=== PATIENT | female | born 1990 | race American Indian/Alaskan Native ===

== ENCOUNTER 2021-11-18 08:41 | Emergency (ER) | payer MEDICAID ==
[2021-11-18] MEDS ORDERED: IBUPROFEN 800 MG TAB PO ONE (09:40)
[2021-11-18 10:12] LABS: Bilirubin,Urine NEG (Negative); Blood,Urine LG (Negative); Color,Urine Colorless (Yellow); Mucus,Urine FEW /HPF; Protein,Urine <15 mg/dL mg/dL (Negative); Urobilinogen,Urine < 2.0 mg/dL (<2.0); WBC,Urine < 1.0 /HPF (0.0-6.0)
[2021-11-18 10:13] LABS: HCG Qualitative,Urine Negative (Negative)
--- NOTE | 2021-11-18 10:54 | Ultrasound Report ---
ULTRASOUND PELVIS INDICATION: Pelvic pain. TECHNIQUE: Transabdominal. Duplex Color Doppler used: Yes. COMPARISON: None available FINDINGS: Uterus: Present. Size: 7.6 x 4.8 x 5.2 cm. Endometrial complex: Normal measuring 1.1 cm. Mass lesions: None. Additional findings: None. Right Ovary: Size: 2.4 x 1.5 x 1.7 cm Blood flow: Normal. Cyst or mass: None. Left Ovary: Size: 2.6 x 1.3 x 1.3 cm Blood flow: Normal. Cyst or mass: None. Urinary Bladder: Normal. Free Fluid: None. Additional Findings: None. IMPRESSION: 1. No acute sonographic abnormality of the pelvis. Signer Name: Jovi Bee MD Signed: 11/18/2021 10:50 AM Workstation Name: [email or web address]
--- NOTE | 2021-11-18 10:56 | Emergency Department Report ---
ED Dysuria HPI - HPI Chief Complaint: Abdominal Pain Stated Complaint: OVARIES PAIN Time Seen by Provider: 11/18/21 09:06 Duration: 5 Days Location of Discomfort: Suprapubic Severity: Mild Symptoms: Dysuria: No, Frequency: No, Suprapubic Pain: Yes, Flank Pain: No, Fever: No, Hematuria: No, Abdominal Pain: No, Previous UTI's: No Other History: Patient is a 31-year-old -[place] female that comes to the emergency room complaining of ovarian pain. She is on her menses. She states that this pain is beyond her normal cramping. She thinks it is her ovarian cyst acting up. She denies dysuria. She denies discharge. She denies concern for STI. ED Review of Systems ROS: Stated complaint: OVARIES PAIN Other details as noted in HPI Comment: All other systems reviewed and negative ED Past Medical Hx - Past Medical History Previous Medical History?: Yes Additional medical history: Ovarian cyst - Surgical History Past Surgical History?: No - Family History Family history: no significant - Social History Smoking Status: Never Smoker Substance Use Type: Alcohol Dysuria Exam - Exam General: Vital signs noted. No distress. Alert and acting appropriately. Exam: Yes Moist Mucous Membranes, No CVA Tenderness, No Abdominal Tenderness, No Rigidity or Guarding Labs: Lab Results 11/18/21 Range/Units 09:10 Urine Color Colorless (Yellow) Urine Turbidity Clear (Clear) Urine pH 6.0 (5.0-7.0) Ur Specific [place] 1.006 (1.003-1.030) Urine Protein <15 mg/dl (Negative) mg/dL Urine Glucose (UA) Neg (Negative) mg/dL Urine Ketones Neg (Negative) mg/dL Urine Blood Lg (Negative) Urine Nitrite Neg (Negative) Urine Bilirubin Neg (Negative) Urine Urobilinogen < 2.0 (<2.0) mg/dL Ur Leukocyte Esterase Neg (Negative) Urine WBC (Auto) < 1.0 (0.0-6.0) /HPF Urine RBC (Auto) 2.0 (0.0-6.0) /HPF U Epithel Cells (Auto) 1.0 (0-13.0) /HPF Urine Mucus Few /HPF Urine HCG, Qual Negative (Negative) ED Course Vital Signs 11/18/21 11/18/21 11/18/21 09:02 09:03 09:07 Temperature 98.3 F Pulse Rate Respiratory 16 Rate Blood Pressure 117/83 O2 Sat by Pulse 100 Oximetry 11/18/21 11/18/21 09:45 09:55 Temperature 97.8 F Pulse Rate 74 Respiratory 16 16 Rate Blood Pressure 131/82 O2 Sat by Pulse 99 Oximetry ED Medical Decision Making - Radiology Data Radiology results: report reviewed, image reviewed See report - Medical Decision Making Lab Results 11/18/21 Range/Units 09:10 Urine Color Colorless (Yellow) Urine Turbidity Clear (Clear) Urine pH 6.0 (5.0-7.0) Ur Specific [place] 1.006 (1.003-1.030) Urine Protein <15 mg/dl (Negative) mg/dL Urine Glucose (UA) Neg (Negative) mg/dL Urine Ketones Neg (Negative) mg/dL Urine Blood Lg (Negative) Urine Nitrite Neg (Negative) Urine Bilirubin Neg (Negative) Urine Urobilinogen < 2.0 (<2.0) mg/dL Ur Leukocyte Esterase Neg (Negative) Urine WBC (Auto) < 1.0 (0.0-6.0) /HPF Urine RBC (Auto) 2.0 (0.0-6.0) /HPF U Epithel Cells (Auto) 1.0 (0-13.0) /HPF Urine Mucus Few /HPF Urine HCG, Qual Negative (Negative) Vital Signs 11/18/21 11/18/21 11/18/21 09:02 09:03 09:07 Temperature 98.3 F Pulse Rate Respiratory 16 Rate Blood Pressure 117/83 Blood Pressure [Right] O2 Sat by Pulse 100 Oximetry 11/18/21 11/18/21 11/18/21 09:45 09:55 11:22 Temperature 97.8 F Pulse Rate 74 78 Respiratory 16 16 16 Rate Blood Pressure 131/82 Blood Pressure 126/80 [Right] O2 Sat by Pulse 99 100 Oximetry UA noted. Preg negative. Ultrasound noted. Patient being discharged home with discharge plan of care including medications, follow-up, activity and pain management. She can take [id number] Motrin or Tylenol for her discomfort. Patient given referral to [facility]. Patient verbalizes understanding of discharge plan of care. On discharge patient is ambulatory, nonill nontoxic taking p.o. with normal vital signs. Critical care attestation.: If time is entered above; I have spent that time in minutes in the direct care of this critically ill patient, excluding procedure time. ED Disposition Clinical Impression: Menses painful Disposition: 01 HOME / SELF CARE / HOMELESS Is pt being admited?: No Does the pt Need Aspirin: No Condition: Stable Instructions: Dysmenorrhea, Abdominal Pain (ED) Additional Instructions: follow up with pcp and obgyn referrals below over the counter motrin or tylenol for pain Referrals: PRIMARY CARE, [Primary Care Provider] - 3-5 Days LEXX QUINTANILLA MD [Staff Physician] - 3-5 Days IZAIAH WHEATLEY MD [Staff Physician] - 3-5 Days Time of Disposition: 10:55
[2021-11-18 11:22] VITALS: BP 126/80
== END 2021-11-18 11:23 | disposition home or self-care (01) ==
LOC: ED 08:41
DX: N94.6 Dysmenorrhea, unspecified (principal); F10.20 Alcohol dependence, uncomplicated
CPT/HCPCS: 76856; 81001; 81025; 99284